=== PATIENT | male | born 1965 | race African-American/Black ===

== ENCOUNTER 2021-11-16 12:16 | Observation (INO) | payer MEDICAID ==
[~2021-11-16] VITALS: Ht 172.7 cm; Wt 74.0 kg
[2021-11-16] VITALS (14 sets, daily range): BP systolic 135–197; BP diastolic 77–127
[2021-11-16 16:36] LABS: HEMATOCRIT 35.8 % (39.0-50.0); IMMATURE GRANULOCYTES 0.2 % (0.0-5.0); MEAN CELL VOLUME 99.4 fL CALC (80.0-100.0); MEAN CORPUSCULAR HGB 33.3 pG CALC (26.0-32.0); MEAN CORPUSCULAR HGB CONC 33.5 g/dL CAL (32.0-36.0); NEUT# 3.32 thou/uL (1.82-7.42); RED BLOOD COUNT 3.6 mill/uL (4.70-6.10); RED CELL DISTRI WIDTH 14.4 % (11.5-15.5)
[2021-11-16 16:55] LABS: ALBUMIN 3.7 g/dL (3.2-5.0); ALKALINE PHOSPHATASE 73 u/l (38-126); ANION GAP 8 (6-22 (CALC)); BILIRUBIN, TOTAL 0.5 mg/dL (0.0-1.4); BUN 11 mg/dL (9-20); BUN/CREATININE RATIO 14 (12-20 (CALC)); CARBON DIOXIDE 33 mmol/l (22-30); CHLORIDE 98 mmol/l (95-108); CPK 303 u/l (52-200); CREATININE 0.8 mg/dL (0.7-1.3); ETHYL ALCOHOL 0 mg/dl (0-30); GFR > 60 ML/MIN (>=60 (CALC)); GFR FOR AFR.AMER. > 60 ML/MIN (>=60 (CALC)); MAGNESIUM 1.5 mg/dL (1.6-2.3); POTASSIUM 3.5 mmol/l (3.5-5.1); SGOT/AST 130 u/l (17-59); SODIUM 135 mmol/l (137-146); TOTAL PROTEIN 7.9 g/dL (6.3-8.2)
[2021-11-16 18:56] LABS: URINE BILIRUBIN - DIPSTICK NEGATIVE (NEGATIVE); URINE BLOOD DIPSTICK LARGE (NEGATIVE); URINE COLOR YELLOW; URINE GLUCOSE - DIPSTICK NEGATIVE (NEGATIVE); URINE KETONE NEGATIVE (NEGATIVE); URINE LEUK ESTERASE NEGATIVE (NEGATIVE); URINE PROTEIN - DIPSTICK NEGATIVE (NEG-TRACE); URINE SPECIFIC GRAVITY 1.015
[2021-11-16 18:58] LABS: URINE NITRITE - DIPSTICK NEGATIVE (Negative)
[2021-11-16 19:03] LABS: URINE RBC 50-100 RBC/hpf (0-5); URINE WBC 0-2 WBC/hpf (0-5)
[2021-11-17] VITALS: BP 152/90
[2021-11-17 00:30] VITALS: BP 149/91
[2021-11-17 01:00] VITALS: BP 153/88
[2021-11-17 01:30] VITALS: BP 153/96
[2021-11-17 02:09] VITALS: BP 156/92
[2021-11-17 05:41] LABS: HEMATOCRIT 35.8 % (39.0-50.0); MEAN CORPUSCULAR HGB 33.5 pG CALC (26.0-32.0); MEAN CORPUSCULAR HGB CONC 33.5 g/dL CAL (32.0-36.0); RED BLOOD COUNT 3.58 mill/uL (4.70-6.10); RED CELL DISTRI WIDTH 14.5 % (11.5-15.5)
[2021-11-17 06:09] LABS: ANION GAP 8 (6-22 (CALC)); BUN 8 mg/dL (9-20); BUN/CREATININE RATIO 12 (12-20 (CALC)); CARBON DIOXIDE 30 mmol/l (22-30); CHLORIDE 102 mmol/l (95-108); CREATININE 0.7 mg/dL (0.7-1.3); GFR > 60 ML/MIN (>=60 (CALC)); GFR FOR AFR.AMER. > 60 ML/MIN (>=60 (CALC)); POTASSIUM 3.5 mmol/l (3.5-5.1); SODIUM 136 mmol/l (137-146)
[2021-11-17 07:43] VITALS: BP 154/88
[2021-11-17] MEDS ORDERED: DOXYCYCLINE100 MG PO (14:15)
== END 2021-11-17 15:38 | disposition home or self-care (01) ==
LOC: ED 12:16 → ED-I 17:51 → ED 18:30 → MS2 18:31
PROVIDERS: Internal Medicine; ADMIT Hospitalist; ATTEND Hospitalist
DX: L03.116 Cellulitis of left lower limb (principal); L03.115 Cellulitis of right lower limb; S81.812A Laceration without foreign body, left lower leg, initial encounter; S91.311A Laceration without foreign body, right foot, initial encounter; F10.10 Alcohol abuse, uncomplicated; I10 Essential (primary) hypertension; G82.20 Paraplegia, unspecified; W17.89XA Other fall from one level to another, initial encounter; T14.8XXS Other injury of unspecified body region, sequela; V89.2XXS Person injured in unspecified motor-vehicle accident, traffic, sequela; Z20.822 Contact with and (suspected) exposure to COVID-19
CPT/HCPCS: G0378; J0692; J1650; J2060; J3475

== ENCOUNTER 2024-10-10 01:24 | Emergency (ER) | payer OTHER ==
[~2024-10-10] VITALS: Ht 172.7 cm; Wt 75.0 kg
[~2024-10-10 01:24] MED LIST: DOXYCYCLINE100 MG PO
[2024-10-10 02:27] VITALS: BP 131/84
== END 2024-10-10 02:27 | disposition home or self-care (01) ==
LOC: ED 01:24
DX: F10.10 Alcohol abuse, uncomplicated (principal); Z59.00 Homelessness unspecified; Z72.0 Tobacco use